=== PATIENT | female | born 1950 | race Caucasian/White ===

== ENCOUNTER 2023-12-31 06:06 | Day surgery (SDC) | payer MEDICARE, OTHER, SELFPAY ==
[2023-12-01 16:18] LABS: Hematocrit 43.9 % (37-47); Hemoglobin 14.1 g/dL (12.0-15.0); Mean Corp Hgb Conc 32.1 g/dL (32-36); Mean Corpuscular Hgb 28.4 pg (27.0-32.0); Mean Corpuscular Volume 88.3 fL (81-99); Mean Platelet Vol. 10.8 fl (6.2-12.0); Platelet Count 188 K/mm3 (150-450); RBC Distribution Width CV 13.9 % (11.6-14.6); RBC Distribution Width SD 44.7 fl (35.1-43.9); Red Blood Count 4.97 M/mm3 (4.2-5.4); White Blood Count 8.1 K/mm3 (4.4-11.0)
[2023-12-01 17:18] LABS: Anion Gap 3 (5-15); BUN 14 mg/dL (7-18); BUN/Creat Ratio 20.5 RATIO (10-20); Calcium,Total 9.1 mg/dL (8.5-10.1); Chloride 108 mmol/L (98-107); Creatinine, Serum 0.68 mg/dL (0.55-1.02); EST Glomerular Filtration Rate 90 mL/min (>60); Est Glom Filt Rate - Afr Amer 108 mL/min (>60); Glucose 88 mg/dL (74-106); Potassium 4.6 mmol/L (3.5-5.1); Sodium Level 138 mmol/L (136-145)
[2023-12-31] VITALS (10 sets, daily range): BP systolic 125–155; BP diastolic 78–102; PULSE 67–97; RESP 16–18; TEMP 36.1–36.6; O2SAT 90–100; BMI 32.5
[2023-12-31] MEDS: Lactated Ringers 1,000 ML 15 ML IV ×2 (06:29→11:12)
--- NOTE | 2023-12-31 07:22 | PCM.HP.BLA ---
History and Physical Date of Admission: 12/31/23 The patient is examined and there are no changes from the H&P dated 12/16/23. She presents for left breast reduction for symmetry following reconstruction on her right breast. Also right breast senior health consultant port removal. Informed consent was obtained. Assessment & Plan Assessment/Plan (1) S/P breast reconstruction, right: (2) History of cancer of right breast: (3) Breast hypertrophy: (4) Breast asymmetry between [place] breast and reconstructed breast: PLAN: Plan For left breast reduction and right senior health consultant port removal.
--- NOTE | 2023-12-31 07:30 | BR_PTH ---
PATIENT: DALI [place]ANDYA [place] [facility] [id number] AGE/SX: 73/F ROOM: RE12/31/[address]: Dr. Joan James MD : 1950 BED: DIS: 12/31/2023 SPEC #: [id number] RECD: 12/31/23 11:00 STATUS: TAYLER BLAS #: [id number] UDAY: 12/31/23 07:[address]: Joan James DEPT: SURGICAL PATHOLOGY RECD BY: Susannah Carlos ENTERED: 12/31/23 11:44 SP TYPE: MAMOPLASTY OTHR DR: Dr. Shaikh Prabhakar Tissues: Left breast, NOS Procedures: Surgery Specimen Level IV HEADER OPERATION: Left breast reduction for symmetry PRE-OP DIAGNOSIS: Status post breast reconstruction, history of right breast cancer, breast hypertrophy, breast asymmetry TISSUE SUBMITTED: Left breast tissue 96 gm MICROSCOPIC DIAGNOSIS Left breast, reduction mammoplasty: Fibrocystic change. Focal intraductal hyperplasia without atypia. Banal microcalcifications. Focal adenosis. Skin with no pathologic change. STELLA/ 01/03/2024 MICROSCOPIC DESCRIPTION Slides are reviewed. GROSS DESCRIPTION A - Received in fixative is one container labeled with the patient's name and designated left breast tissue. The specimen consists of multiple pieces of fibroadipose tissue with a few of the pieces showing dawkins-white skin, weight in OR 96 gm and measuring in aggregate 12.0 x 9.0 x 3.0 cm. No skin lesion is identified. Sections reveal yellow adipose cut surfaces mixed with scant fibrous areas. No mass lesion is identified. Php Software Engineer sections are submitted in six cassettes. Cassette 1 contains the skin piece. MASTER: 12/31/23 TC:5 CPT: 13360
[2023-12-31] MEDS: Clindamycin 900 MG/50 ML BAG 75 MG IV (07:40)
[2023-12-31] MEDS: Methylene Blue 1% 100 MG/10 ML VIAL (08:04)
[2023-12-31] MEDS: EPINEPHrine Nasal 0.1% 30 ML Bottle NASAL (08:04)
[2023-12-31] MEDS: Gentamicin 80 MG/2 ML Vial (08:04)
[2023-12-31] MEDS: Bupivacaine 0.25% 30 ML Vial (10:20)
--- NOTE | 2023-12-31 10:37 | DCINST_ITS ---
Discharge Instructions Dressing / Incision Additional Dressing/Incision Instructions:: Keep your back elevated (recliner position) to help reduce swelling and bruising. Follow the instructions given in the office. Leave the bra and dressing in place until seen in the office. Follow Up Care Please Follow Up With: Joan James MD When: In 1 week Test Results: Test results from this visit will be discussed in further detail at your follow- up appointment, if applicable. Discharge Plan Admission Attending Provider: Joan James Primary Care Provider: Shaikh Prabhakar Instructions Additional Instructions / Restrictions: Incentive spirometer used hourly during the day. Discharge Orders/Prescriptions Prescriptions: No Action levothyroxine 50 mcg tablet 50 mcg PO DAILY Patient Comments: take 1 tablet by mouth once daily citalopram 20 mg tablet 30 mg PO DAILY Patient Comments: TAKE 1 AND 1/2 TABLETS BY MOUTH ONCE DAILY fesoterodine 8 mg tablet extended release 24 hr 8 mg PO DAILY Patient Comments: TAKE 1 TAB BY MOUTH DAILY simvastatin 20 mg tablet 20 mg PO QHS Patient Comments: Take 1 (one) Tablet by mouth at bedtime famotidine 20 mg tablet 20 mg PO QHS aspirin 81 mg tablet,delayed release (DR/EC) 81 mg PO DAILY Complete MV Adult 50 Plus 0.4 mg-300 mcg- 250 mcg tablet 1 tab PO DAILY calcium carbonate-vitamin D3 [Calcium 600 with Vitamin D3] 600 mg-12.5 mcg (500 unit) capsule 1 cap PO DAILY Collagen Skin Renewal 30-833.3 mg tablet 1 tab PO DAILY melatonin 10 mg tablet 10 mg PO HS Ozempic 0.25 mg or 0.5 mg (2 mg/3 mL) pen injector 0.25 mg subcut TH Patient Comments: inject 0.25 milligrams subcutaneously every week for 4 weeks then... (REFER TO PRESCRIPTION NOTES). esomeprazole magnesium 40 mg capsule,delayed release(DR/EC) 40 mg PO DAILY Patient Comments: take 1 capsule by mouth daily clindamycin HCl 300 mg capsule 300 mg PO Q8H Qty: 15 0RF flaxseed oil 1,000 mg capsule 1,000 mg PO DAILY Probiotic Acidophilus 250 million cell capsule 500 mmu cells PO DAILY Referrals / Follow Up: Shaikh Prabhakar [Primary Care Provider] - Disposition Disposition (needs filled in before D/C Order can be placed): Home, Self Care
--- NOTE | 2023-12-31 10:40 | OP.PCM_ITS ---
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 She has previously undergone right breast reconstruction with a tissue medtronics technician with a remote port. She understands that the purpose of the surgery is to improve the symmetry however it will never be identical to the opposite side. Informed consent was obtained. She is marked in the preop holding area prior to surgery. The patient is brought to the operating room and placed under general anesthesia in the supine position. Care is taken to pad all pressure points, apply a warming blanket, sequential compression stockings, and a Agudelo catheter. The breast and chest are prepped and draped in the usual sterile fashion. We initially began with incising the previously marked incisions on the left breast . Following this, the pedicle is de-epithelialized. The medial and lateral inferior aspects of the breast are removed using argon coagulation. The pedicle was then from the upper flap by continuing dissection cephalad maintaining the upper flap at least 2 cm in thickness. Following this, the pedicle was trimmed in order to allow to comfortably fit beneath the upper flap. The wound is then irrigated with antibiotic solution and checked for hemostasis which is controlled with cautery. Vicryl sutures are used to tack the pedicle to the medial chest to maintain some fullness of the anterior breast. The breast is then infolded and tacked in place using silk suture and skin clips. We began by closing the inframammary crease in 3 layers using a strata fix suture. Approximately 4-1/2 cm above the inframammary crease, the nipple areola is brought out through the upper flap. It is tacked in place with interrupted nylon suture. All incisions are then closed with a running subcuticular strata fix suture. On the opposite side, the port, located beneath the inframammary crease, is palpated. An incision is made in the inframammary crease and carried down until the port is encountered. The port is then freed and sharply snapped off to allow seating of the plug in the tissue medtronics technician. The tube is checked for appropriate location of the separation. The wound is observed without leakage of saline noted. The channel, where the tube was previously located is then closed with Vicryl sutures. The wound is then closed in layers using Vicryl suture in the subcutaneous tissue and dermis. Skin edges are approximated with a running subcuticular Monocryl suture. All incisions are injected with quarter percent plain Marcaine. Xeroform is placed on the incisions as well is fluff gauze and she is placed in a front fastening bra. She tolerated the procedure well and was taken to the recovery area in an awake and stable condition. Needle and sponge counts are correct. Complications None Admit VTE Documentation VTE Mechan Device Prophylaxis: SCD's
--- NOTE | 2023-12-31 10:40 | SUR.PHASEI ---
PACU ARRIVAL: VERY RESTLESS, C/O LOW BACK PAIN WHICH IS CHRONIC, UNABLE TO KEEP HOB ELEVATED TO 30 DEGREES PER PROTOCOL POST-OP, INSISTS ON LAYING SUPINE ON RIGHT SIDE. EXPLAINED RATIONALE FOR KEEPING HOB ELEVATED, PATIENT UNABLE TO TOLERATE, WILL NOTIFY DR GARRISON.
[2023-12-31] MEDS: Ketorolac 15 MG/ML Vial IV (10:59)
== END 2023-12-31 14:15 | disposition home or self-care (01) ==
LOC: SDC 06:06 → AC 06:07
PROVIDERS: PCP Internal Medicine; Referring Provider Internal Medicine; Visit Provider Plastic Surgery
PROC: 0H0U0ZZ Alteration of Left Breast, Open Approach (ICD-10-PCS; CPT 19318; principal; 2023-12-31 07:15)
DX: N65.1 Disproportion of reconstructed breast (principal); E78.00 Pure hypercholesterolemia, unspecified; Z48.3 Aftercare following surgery for neoplasm; N60.22 Fibroadenosis of left breast; K21.9 Gastro-esophageal reflux disease without esophagitis; Z79.82 Long term (current) use of aspirin; Z79.890 Hormone replacement therapy; Z79.899 Other long term (current) drug therapy; Z85.3 Personal history of malignant neoplasm of breast; Z90.11 Acquired absence of right breast and nipple; Z98.890 Other specified postprocedural states
CPT/HCPCS: 19318; 11971; 00402; 36415; 80048; 85027; 88305; J7120; J2405

== ENCOUNTER 2024-09-01 12:09 | Day surgery (SDC) | payer MEDICARE, OTHER, SELFPAY ==
[2024-09-01] VITALS (15 sets, daily range): BP systolic 147–167; BP diastolic 87–96; PULSE 66–71; RESP 16; TEMP 36.3–36.9; O2SAT 93–98; BMI 31.0
--- NOTE | 2024-09-01 13:40 | PCM.HP.STD ---
[facility] - General General Date of Service: 09/01/24 HPI Narrative DALI PANDYA, is a 74 F who presents for right nipple reconstruction. She has undergone previous mastectomy and reconstruction. Informed consent is obtained for nipple reconstruction no guarantees are made as to his long-term appearance. [facility] Medical History (Updated 07/05/24 @ 15:[address] Joan James MD) Post-menopausal Wears glasses Depression Alcohol use Thyroid disease Walker as ambulation aid Arthritis Bladder disease Back pain Syncope Non-smoker CPAP (continuous positive airway pressure) dependence History of pain when walking History of edema History of heart attack Dental root implant present GERD (gastroesophageal reflux disease) High cholesterol Chronic SI joint pain Breast cancer Home Medications ?Medication ?Instructions ?Recorded ?Last Taken ?Type ascorbic acid 30 mg-collagen, 1 tab PO DAILY 04/14/23 Unknown History hydrolyzed 833.3 mg tablet (Collagen Skin Renewal) aspirin 81 mg tablet,delayed 81 mg PO DAILY 04/14/23 12/17/23 History release calcium 600 mg (as 1 cap PO DAILY 04/14/23 Unknown History carbonate)-vitamin D3 12.5 mcg (500 unit) capsule (Calcium with Vit D3) citalopram 20 mg tablet 30 mg PO DAILY 04/14/23 12/31/23 03:45 History esomeprazole magnesium 40 mg 40 mg PO DAILY 04/14/23 12/31/23 History capsule,delayed release famotidine 20 mg tablet 20 mg PO QHS 04/14/23 12/30/23 History fesoterodine 8 mg tablet,extended 8 mg PO DAILY 04/14/23 12/31/23 History release 24 hr levothyroxine 50 mcg tablet 50 mcg PO DAILY 04/14/23 12/31/23 History melatonin 10 mg tablet 10 mg PO HS 04/14/23 Unknown History aiizvdsn-udi-ekajm acid 0.4 1 tab PO DAILY 04/14/23 Unknown History mg-lycopene 300 mcg-lutein 250 mcg tablet (Complete Multivitamin Adult 50 Plus) semaglutide 0.25 mg or 0.5 mg (2 0.25 mg subcut TH 04/14/23 Unknown History mg/3 mL) subcutaneous pen injector (Ozempic) simvastatin 20 mg tablet 20 mg PO QHS 04/14/23 Unknown History Lactobacillus acidophilus 250 500 mmu cells PO DAILY 12/09/23 Unknown History million cell capsule (Probiotic Acidophilus) flaxseed oil 1,000 mg capsule 1,000 mg PO DAILY 12/09/23 Unknown History celecoxib 50 mg capsule (Celebrex) 50 mg PO .prn 07/05/24 Unknown History Allergy/AdvReac Type Severity Reaction Status Date / Time oxycodone (From Percocet) Allergy Mild Swelling Verified 09/01/24 12:33 Penicillins Allergy Rash Verified 09/01/24 12:33 Sulfa (Sulfonamide Allergy Rash Verified 09/01/24 12:33 Antibiotics) Family History (Updated 04/14/23 @ 14:24 by Jaqui Lo) Mother Heart disease Father Heart disease Surgical History (Updated 01/05/24 @ 15:[address] Joan James MD) History of reduction surgery of left breast History of cardiac catheterization Hx of right cataract extraction Hx of left cataract extraction Hx of colonoscopy Hx of left inguinal hernia repair History of modified radical mastectomy of right breast History of sinus surgery H/O arthroscopy of shoulder History of arthroscopy of knee History of bladder suspension procedure Social History (Updated 04/14/23 @ 14:23 by Jaqui Lo) Smoking Status: Never smoker alcohol intake: current substance use type: does not use additional social history: Aspirin use daily. Occasional Ibuprofen use. Vital Signs Vital Signs Vital Signs: 09/01/24 12:34 09/01/24 12:34 Temperature 97.3 F L Temperature Source Temporal Pulse Rate 71 Respiratory Rate 16 Respiratory Pattern Normal Blood Pressure 147/92 H Blood Pressure Mean 110 Blood Pressure Source Monitor Blood Pressure Position Semi-Fowlers Blood Pressure Location Left Arm Pulse Ox 96 Oxygen Delivery Method Room Air Weight Weight: 192 lb 3.2 oz Body Mass Index (BMI) 31.0 Physical Exam Narrative Acquired absence of right breast. Reconstruction intact. Const alert, oriented x3, no apparent distress, average body habitus and well nourished General Appearance: cooperative and well developed Orientation / Consciousness: oriented to person, oriented to place and oriented to time HEENT head/scalp atraumatic, external ears normal and external nose normal Head and Scalp: normal to inspection, normocephalic, atraumatic and abrasion Face and Sinus: normal facial exam and face symmetric Nose: external nose normal External Ear: external ears normal External Auditory Canal: EAC's normal Mouth: lips normal Eyes PERRL, EOMs intact bilaterally and conjunctivae normal General Eye: normal appearance of both eyes Periorbital: periorbital findings normal Eyelid: eyelids normal Conjunctiva: conjunctiva normal Pupil: PERRL Neck full ROM Lymph Lymphatic: no lymphadenopathy noted Chest inspection of chest normal Breast/Axilla Palpation: no axillary lymphadenopathy Resp normal respiratory effort, normal air movement and clear to auscultation bilaterally Auscultation: clear to auscultation bilaterally Cardio regular rate, regular rhythm, S1 normal heart sound, S2 normal heart sound and no murmurs Rate: regular rate Rhythm: regular rhythm GI soft to palpation and non-tender Extremity normal to inspection and full ROM Extremity Narrative: Bilateral lower extremity edema General Extremity: normal exam except as noted Skin General Skin Exam: turgor normal Neuro oriented x3, CN's II-XII intact bilaterally, moves all extremities, no focal motor deficits and no sensory deficits noted Sensorium / Orientation: awake, alert, oriented to person, oriented to place and oriented to time Speech: speech normal Gait (Neuro): normal gait Psych mental status grossly normal Attention / Concentration: concentration grossly intact Memory / Cognition: memory grossly intact Assessment & Plan Assessment/Plan (1) Acquired absence of right breast: (2) Status post breast reduction: PLAN: Plan For right nipple reconstruction
[2024-09-01] MEDS: Lidocaine 1% /Epi 1:100 9 ML, Sodium Bicarbonate 1 MEQ OPERA.SITE (14:50)
[2024-09-01] MEDS: Nitroglycerin Oint 1 INCH PACKET TD (14:52)
--- NOTE | 2024-09-01 15:00 | EX.PCM.DISCH ---
Discharge Instructions Dressing / Incision Additional Dressing/Incision Instructions:: Keep the dressing in place until seen in the office next week. Keep the dressing dry. Keep your back elevated (recliner position) to decrease bleeding and swelling. Take the oral antibiotic given as directed. Follow Up Care Please Follow Up With: Joan James MD When: In 1 week Test Results: Test results from this visit will be discussed in further detail at your follow-up appointment, if applicable. Discharge Plan Admission Attending Provider: Joan James Primary Care Provider: Shaikh Prabhakar Instructions Print Language: Greenlandic Discharge Orders/Prescriptions Prescriptions: No Action levothyroxine 50 mcg tablet 50 mcg PO DAILY Patient Comments: take 1 tablet by mouth once daily citalopram 20 mg tablet 30 mg PO DAILY Patient Comments: TAKE 1 AND 1/2 TABLETS BY MOUTH ONCE DAILY fesoterodine 8 mg tablet extended release 24 hr 8 mg PO DAILY Patient Comments: TAKE 1 TAB BY MOUTH DAILY simvastatin 20 mg tablet 20 mg PO QHS Patient Comments: Take 1 (one) Tablet by mouth at bedtime famotidine 20 mg tablet 20 mg PO QHS aspirin 81 mg tablet,delayed release (DR/EC) 81 mg PO DAILY Complete MV Adult 50 Plus 0.4 mg-300 mcg- 250 mcg tablet 1 tab PO DAILY calcium carbonate-vitamin D3 [Calcium 600 with Vitamin D3] 600 mg-12.5 mcg (500 unit) capsule 1 cap PO DAILY Collagen Skin Renewal 30-833.3 mg tablet 1 tab PO DAILY melatonin 10 mg tablet 10 mg PO HS Ozempic 0.25 mg or 0.5 mg (2 mg/3 mL) pen injector 0.25 mg subcut TH Patient Comments: inject 0.25 milligrams subcutaneously every week for 4 weeks then... (REFER TO PRESCRIPTION NOTES). esomeprazole magnesium 40 mg capsule,delayed release(DR/EC) 40 mg PO DAILY Patient Comments: take 1 capsule by mouth daily celecoxib [Celebrex] 50 mg capsule 50 mg PO .prn flaxseed oil 1,000 mg capsule 1,000 mg PO DAILY Probiotic Acidophilus 250 million cell capsule 500 mmu cells PO DAILY Referrals / Follow Up: Shaikh Prabhakar [Primary Care Provider] - Disposition Disposition (needs filled in before D/C Order can be placed): Home, Self Care
--- NOTE | 2024-09-01 15:04 | PCM.OPRPT ---
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 Post-Operative Diagnosis: Same Surgery/Procedure Performed: Right nipple reconstruction paralegal legal secretary: No Type of Anesthesia: Local RN Documented Start/Stop Times: Operation Date: 09/01/24 12:50 Case Time Into Pre-Op 09/01/24 12:16 Out of Pre-Op 09/01/24 13:43 Anesthesia Start 09/01/24 13:55 Into Room 09/01/24 13:55 Procedure Start 09/01/24 14:19 Procedure End 09/01/24 14:56 Procedure Start Time: 14:19 Procedure Stop Time: 14:56 Select all DRAINS/GRAFTS/IMPLANTS that apply: None Estimated Blood Loss: Minimal Specimen collected: No Description of surgery: The patient presents today for staged breast reconstruction. She has had reconstruction done on the right side with an implant and now presents for nipple reconstruction. The procedure and thoroughly reviewed with the patient including the potential risks. She is aware of the risk of infection of the underlying implant as well as loss of projection of the nipple and skin necrosis. She has marked prior to surgery at the site that she and her have designated for the nipple. The patient is brought to the operating room and placed on the operating room table in supine position. The breast and chest are prepped and draped in the usual sterile fashion. We initially began with marking a flap with the width and depth of the existing nipple on the left side. The the area outside the flap is injected with 1% Xylocaine with epinephrine. The flap is then incised and elevated in a subcutaneous plane. It is then elevated. The existing defect is then approximately with Mersilene sutures in the subdermal plane. Skin edges are approximated with a running chromic suture. Further reinforcement of the closure is done with interrupted silk suture. The arms of the flap are wrapped around and the nipple is sutured with chromic suture. A single suture was used to anchor the nipple to prevent folding back onto its base. The area is then dressed with Xeroform, Telfa, a bolster sponge and gauze. This is anchored in place with tape. She tolerated the procedure well was taken to the recovery area in an awake and stable condition. Needle and sponge counts are correct. Surgical Findings: As above Complications Complications: No Admit VTE Documentation VTE Mechan Device Prophylaxis: None Reason prophylaxis not ordered: Treatment Not Indicated
== END 2024-09-01 15:50 | disposition home or self-care (01) ==
LOC: SDC 12:14 → AC 12:15
PROVIDERS: PCP Internal Medicine; Referring Provider Plastic Surgery; Visit Provider Plastic Surgery
PROC: (CPT 19350; principal; 2024-09-01 12:35)
DX: Z42.1 Encounter for breast reconstruction following mastectomy (principal); K21.9 Gastro-esophageal reflux disease without esophagitis; E78.00 Pure hypercholesterolemia, unspecified; F32.A Depression, unspecified; Z79.85 Long-term (current) use of injectable non-insulin antidiabetic drugs; Z79.82 Long term (current) use of aspirin; Z79.899 Other long term (current) drug therapy; Z90.11 Acquired absence of right breast and nipple
CPT/HCPCS: 19350; A4216

== ENCOUNTER 2025-01-05 08:46 | Day surgery (SDC) | payer MEDICARE, OTHER, SELFPAY ==
[2025-01-05 09:03] VITALS: BP 142/74; PULSE 67; RESP 16; TEMP 36.1; O2SAT 96; BMI 32.1
--- NOTE | 2025-01-05 09:13 | PCM.HP.STD ---
HPI - General HPI Narrative DALI PANDYA, is a 74 F who presents [facility] Medical History (Updated 07/05/24 @ 15:[address] Joan James MD) Post-menopausal Wears glasses Depression Alcohol use Thyroid disease Walker as ambulation aid Arthritis Bladder disease Back pain Syncope Non-smoker CPAP (continuous positive airway pressure) dependence History of pain when walking History of edema History of heart attack Dental root implant present GERD (gastroesophageal reflux disease) High cholesterol Chronic SI joint pain Breast cancer Home Medications ?Medication ?Instructions ?Recorded ?Last Taken ?Type ascorbic acid 30 mg-collagen, 1 tab PO DAILY 04/14/23 Unknown History hydrolyzed 833.3 mg tablet (Collagen Skin Renewal) aspirin 81 mg tablet,delayed 81 mg PO DAILY 04/14/23 12/17/23 History release calcium 600 mg (as 1 cap PO DAILY 04/14/23 Unknown History carbonate)-vitamin D3 12.5 mcg (500 unit) capsule (Calcium with Vit D3) citalopram 20 mg tablet 30 mg PO DAILY 04/14/23 12/31/23 03:45 History esomeprazole magnesium 40 mg 40 mg PO DAILY 04/14/23 12/31/23 History capsule,delayed release famotidine 20 mg tablet 20 mg PO QHS 04/14/23 12/30/23 History fesoterodine 8 mg tablet,extended 8 mg PO DAILY 04/14/23 12/31/23 History release 24 hr levothyroxine 50 mcg tablet 50 mcg PO DAILY 04/14/23 12/31/23 History melatonin 10 mg tablet 10 mg PO HS 04/14/23 Unknown History dgllskbo-lzl-ifzos acid 0.4 1 tab PO DAILY 04/14/23 Unknown History mg-lycopene 300 mcg-lutein 250 mcg tablet (Complete Multivitamin Adult 50 Plus) semaglutide 0.25 mg or 0.5 mg (2 0.25 mg subcut TH 04/14/23 Unknown History mg/3 mL) subcutaneous pen injector (Ozempic) simvastatin 20 mg tablet 20 mg PO QHS 04/14/23 Unknown History Lactobacillus acidophilus 250 500 mmu cells PO DAILY 12/09/23 Unknown History million cell capsule (Probiotic Acidophilus) flaxseed oil 1,000 mg capsule 1,000 mg PO DAILY 12/09/23 Unknown History celecoxib 50 mg capsule (Celebrex) 50 mg PO .prn 07/05/24 Unknown History clindamycin HCl 300 mg capsule 300 mg PO TID 09/06/24 Unknown History Allergy/AdvReac Type Severity Reaction Status Date / Time oxycodone (From Percocet) Allergy Mild Swelling Verified 11/28/24 13:19 Penicillins Allergy Rash Verified 11/28/24 13:19 Sulfa (Sulfonamide Allergy Rash Verified 11/28/24 13:19 Antibiotics) Family History (Updated 04/14/23 @ 14:24 by Jaqui Lo) Mother Heart disease Father Heart disease Surgical History (Updated 01/05/24 @ 15:[address] Joan James MD) History of reduction surgery of left breast History of cardiac catheterization Hx of right cataract extraction Hx of left cataract extraction Hx of colonoscopy Hx of left inguinal hernia repair History of modified radical mastectomy of right breast History of sinus surgery H/O arthroscopy of shoulder History of arthroscopy of knee History of bladder suspension procedure Social History (Updated 04/14/23 @ 14:23 by Jaqui Lo) Smoking Status: Never smoker alcohol intake: current substance use type: does not use additional social history: Aspirin use daily. Occasional Ibuprofen use. Vital Signs Vital Signs Vital Signs: 01/05/25 09:03 01/05/25 09:03 Temperature 97.0 F L Temperature Source Temporal Pulse Rate 67 Respiratory Rate 16 Respiratory Pattern Normal Blood Pressure 142/74 H Blood Pressure Mean 96 Blood Pressure Source Monitor Blood Pressure Position Semi-Fowlers Blood Pressure Location Left Arm Pulse Ox 96 Oxygen Delivery Method Room Air Weight Weight: 198 lb 12.8 oz Body Mass Index (BMI) 32.1 Physical Exam Const alert, oriented x3, no apparent distress, average body habitus and well nourished General Appearance: cooperative and well developed Orientation / Consciousness: oriented to person, oriented to place and oriented to time HEENT head/scalp atraumatic, external ears normal and external nose normal Head and Scalp: normal to inspection, normocephalic, atraumatic and abrasion Face and Sinus: normal facial exam and face symmetric Nose: external nose normal External Ear: external ears normal External Auditory Canal: EAC's normal Mouth: lips normal Eyes PERRL, EOMs intact bilaterally and conjunctivae normal General Eye: normal appearance of both eyes Periorbital: periorbital findings normal Eyelid: eyelids normal Conjunctiva: conjunctiva normal Pupil: PERRL Neck full ROM Lymph Lymphatic: no lymphadenopathy noted Chest Chest Narrative: Acquired absence right breast. Status post right breast reconstruction Breast/Axilla Palpation: no axillary lymphadenopathy Resp normal respiratory effort, normal air movement and clear to auscultation bilaterally Auscultation: clear to auscultation bilaterally Cardio regular rate, regular rhythm, S1 normal heart sound, S2 normal heart sound and no murmurs Rate: regular rate Rhythm: regular rhythm GI soft to palpation and non-tender Extremity normal to inspection and full ROM Extremity Narrative: Bilateral compression stockings in place for lower extremity edema General Extremity: normal exam except as noted Skin General Skin Exam: turgor normal Neuro oriented x3, CN's II-XII intact bilaterally, moves all extremities, no focal motor deficits and no sensory deficits noted Sensorium / Orientation: awake, alert, oriented to person, oriented to place and oriented to time Speech: speech normal Gait (Neuro): normal gait Psych mental status grossly normal Attention / Concentration: concentration grossly intact Memory / Cognition: memory grossly intact Assessment & Plan Assessment/Plan (1) Acquired absence of right breast: PLAN: The patient was marked in the preop holding area. She presents for reconstruction of the right nipple areola. An informed consent is obtained for tattoo right nipple areola complex. (2) S/P breast reconstruction, right: PLAN: Plan For right breast reconstruction
[2025-01-05 09:57] VITALS: BP 135/81; BP 142/89; O2SAT 93; O2SAT 94; O2SAT 95; O2SAT 96; O2SAT 97
[2025-01-05] MEDS: Lidocaine 1% /Epi 1:100 9 ML, Sodium Bicarbonate 1 MEQ OPERA.SITE (10:04)
[2025-01-05] MEDS: Bacitracin 500 UNITS/GM PACKET (10:46)
--- NOTE | 2025-01-05 10:53 | EX.PCM.DISCH ---
Discharge Instructions Dressing / Incision Additional Dressing/Incision Instructions:: May shower over the site. Change the dressing daily with antibiotic ointment and a nonstick dressing. Take the oral antibiotic (clindamycin) 3 times a day until finished. Keep your back elevated (recliner position) for the next 2-3 nights. Follow Up Care Please Follow Up With: Joan James MD When: 1 to 2 weeks Test Results: Test results from this visit will be discussed in further detail at your follow-up appointment, if applicable. Discharge Plan Admission Attending Provider: Joan James Primary Care Provider: Shaikh Prabhakar Instructions Print Language: Ghanaian Discharge Orders/Prescriptions Prescriptions: New clindamycin HCl [Cleocin HCl] 300 mg capsule 300 mg PO TID Qty: 21 0RF No Action levothyroxine 50 mcg tablet 50 mcg PO DAILY Patient Comments: take 1 tablet by mouth once daily citalopram 20 mg tablet 30 mg PO DAILY Patient Comments: TAKE 1 AND 1/2 TABLETS BY MOUTH ONCE DAILY fesoterodine 8 mg tablet extended release 24 hr 8 mg PO DAILY Patient Comments: TAKE 1 TAB BY MOUTH DAILY simvastatin 20 mg tablet 20 mg PO QHS Patient Comments: Take 1 (one) Tablet by mouth at bedtime famotidine 20 mg tablet 20 mg PO QHS aspirin 81 mg tablet,delayed release (DR/EC) 81 mg PO DAILY Complete MV Adult 50 Plus 0.4 mg-300 mcg- 250 mcg tablet 1 tab PO DAILY calcium carbonate-vitamin D3 [Calcium 600 with Vitamin D3] 600 mg-12.5 mcg (500 unit) capsule 1 cap PO DAILY Collagen Skin Renewal 30-833.3 mg tablet 1 tab PO DAILY melatonin 10 mg tablet 10 mg PO HS Ozempic 0.25 mg or 0.5 mg (2 mg/3 mL) pen injector 0.25 mg subcut TH Patient Comments: inject 0.25 milligrams subcutaneously every week for 4 weeks then... (REFER TO PRESCRIPTION NOTES). esomeprazole magnesium 40 mg capsule,delayed release(DR/EC) 40 mg PO DAILY Patient Comments: take 1 capsule by mouth daily celecoxib [Celebrex] 50 mg capsule 50 mg PO .prn clindamycin HCl 300 mg capsule 300 mg PO TID flaxseed oil 1,000 mg capsule 1,000 mg PO DAILY Probiotic Acidophilus 250 million cell capsule 500 mmu cells PO DAILY Referrals / Follow Up: Shaikh Prabhakar [Primary Care Provider] - Disposition Disposition (needs filled in before D/C Order can be placed): Home, Self Care
--- NOTE | 2025-01-05 11:00 | OP.PCM_ITS ---
Problems Associated Problem List Diagnoses (1) Acquired absence of right breast: (2) S/P breast reconstruction, right: Operative Report (Standard) Operative Information Date of Procedure: 01/05/25 Pre-Operative Diagnosis: Acquired absence right breast status post mastectomy for cancer Post-Operative Diagnosis: Same Surgery/Procedure Performed: Tattoo right nipple areola complex for reconstruction early childhood assistant: No Type of Anesthesia: Local RN Documented Start/Stop Times: Operation Date: 01/05/25 09:30 Case Time Into Pre-Op 01/05/25 08:51 Out of Pre-Op 01/05/25 09:42 Into Room 01/05/25 09:47 Procedure Start 01/05/25 10:04 Procedure End 01/05/25 10:51 Out of Room 01/05/25 10:52 Procedure Start Time: 10:04 Procedure Stop Time: 10:51 Select all DRAINS/GRAFTS/IMPLANTS that apply: None Estimated Blood Loss: Minimal Specimen collected: No Description of surgery: The patient presents today for tattoo of the right nipple areola complex status post mastectomy for reconstruction. She is marked in the preop holding area prior to surgery. She is aware the potential need for touchup tattoo in the future. An informed consent is obtained. The patient is brought to the operating room and placed on the table in the supine position. The breasts are prepped and draped in the usual sterile fashion. 1% Xylocaine with epinephrine is used for local anesthetic. A template is made of the left side and transferred to the right side. Following this, the colors are blended in order to achieve the correct base color. Per Rafael colors [place] 2, Flesh 1.5, and Flesh 6 are used to achieve a reasonable match to the existing side. A 7 needle cluster is used for the tattoo. The entire surface is covered. The edges are feathered. The reconstructed nipple has a more pinker hue which is created with flesh 6. The area is cleaned. Antibiotic ointment is placed on the area along with Xeroform gauze and a Telfa pad. She tolerated the procedure well was taken to the recovery area in an awake and stable condition. Needle and sponge counts are correct. Surgical Findings: As above During the procedure, the needle was changed due to a dark servin residue noted on the needle. This pigment color was not used during the procedure and may have been inside the shaft of the equipment itself. Complications Complications: No Admit VTE Documentation VTE Pharm Prophylaxis ordered?: No Reason prophylaxis not ordered: Treatment Not Indicated
[2025-01-05 11:24] VITALS: BP 140/61; PULSE 69; RESP 16; TEMP 36.9; O2SAT 96
== END 2025-01-05 11:41 | disposition home or self-care (01) ==
LOC: SDC 08:47 → AC 08:48
PROVIDERS: PCP Internal Medicine; Referring Provider Internal Medicine; Visit Provider Plastic Surgery
PROC: 3E00XMZ Introduction of Pigment into Skin and Mucous Membranes, External Approach (ICD-10-PCS; CPT 11921; principal; 2025-01-05 09:15)
DX: Z42.1 Encounter for breast reconstruction following mastectomy (principal); Z90.11 Acquired absence of right breast and nipple; K21.9 Gastro-esophageal reflux disease without esophagitis; E78.00 Pure hypercholesterolemia, unspecified; F32.A Depression, unspecified; Z79.82 Long term (current) use of aspirin; Z79.899 Other long term (current) drug therapy; Z85.3 Personal history of malignant neoplasm of breast
CPT/HCPCS: 11921